=== PATIENT | female | born 1995 | race Caucasian/White ===

== ENCOUNTER 2021-12-16 11:03 | Emergency (ER) | payer BC, SELFPAY ==
[2021-12-16 11:22] VITALS: BP 138/91; PULSE 123; RESP 18; TEMP 37.5; O2SAT 100
--- NOTE | 2021-12-16 11:57 | ED.GENADULT ---
HPI - General Adult General Chief complaint: Upper Respiratory Infection Stated complaint: sore and swollen throat History of Present Illness HPI narrative: Patient is a 26-year-old female who presents to the express care via POV for an evaluation of a sore throat that began 3 days ago. Additionally, she reports fever, myalgias, and intermittent frontal headaches. Maximum temperature was 102.0. Ibuprofen and sleeping provides minimal relief. Swallowing worsens throat pain. 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 Her students have been out with strep throat and [id number]. Related Data Home Medications Medication Instructions Recorded Confirmed No Home Medications 12/16/21 12/16/21 Allergies Allergy/AdvReac Type Severity Reaction Status Date / Time No Known Allergies Allergy Verified 12/16/21 11:59 Review of Systems Review of Systems: Denies chills, sweats, change in appetite, poor p.o. intake, drooling, difficulty swallowing, severe persistent headaches, sinus problems, ear problems, cough, wheezing, abdominal pain, shortness of breath, nausea, vomiting, diarrhea, chest pain, and heart palpitations. Exam Narrative: GENERAL: Well-appearing, well-nourished, and in no acute distress. HEAD: Normocephalic, atraumatic. No sinus tenderness or facial swelling appreciated. EYES: PERRLA and EOMI. No evidence of erythema, swelling, or drainage. ENT: Bilateral external ears and ear canals normal. Bilateral TMs are normal.No TM perforation. Nares clear, no rhinorrhea or epistaxis. Bilateral turbinates without erythema/ swelling. Mucous membranes moist and pink. Uvula is midline without erythema and swelling. Bilateral tonsils are moderately edematous and erythematous. Breath odor and voice normal. NECK: Supple. Moderate bilateral submandibular lymphadenopathy palpated. No nuchal rigidity appreciated. CHEST: Bilateral lung gregg are clear to auscultation. No respiratory distress. No evidence of cough or pleuritic cp upon examination. HEART: Regular rate and rhythm. No murmur, gallop, or rub heard. EXTREMITIES: Normal range of motion. No edema. SKIN: Warm, dry, no rash. NEURO: No focal deficits. Alert and oriented x3. Course Course Level of Care: Express Care Visit Vital Signs Vital signs: Vital Signs Temperature 99.5 F 12/16/21 11:22 Pulse Rate 123 H 12/16/21 11:22 Respiratory Rate 18 12/16/21 11:22 Blood Pressure 138/91 H 12/16/21 11:22 Pulse Oximetry 100 12/16/21 11:22 Oxygen Delivery Room Air 12/16/21 11:22 Temperature 99.5 F 12/16/21 11:22 Pulse Rate 123 H 12/16/21 11:22 Respiratory Rate 18 12/16/21 11:22 Blood Pressure 138/91 H 12/16/21 11:22 Pulse Oximetry 100 12/16/21 11:22 Oxygen Delivery Room Air 12/16/21 11:22 Medical Decision Making Differential Diagnosis Differential Diagnosis: Allergic rhinitis, ABRS, acute viral sinusitis, strep pharyngitis, nasopharyngitis, bronchitis, pneumonia, AOM, otitis externa, viral URI, influenza, covid-19 Vital Signs Vital Signs: Vital Signs Temperature 99.5 F 12/16/21 11:22 Pulse Rate 123 H 12/16/21 11:22 Respiratory Rate 18 12/16/21 11:22 Blood Pressure 138/91 H 12/16/21 11:22 Pulse Oximetry 100 12/16/21 11:22 Oxygen Delivery Room Air 12/16/21 11:22 Temperature 99.5 F 12/16/21 11:22 Pulse Rate 123 H 12/16/21 11:22 Respiratory Rate 18 12/16/21 11:22 Blood Pressure 138/91 H 12/16/21 11:22 Pulse Oximetry 100 12/16/21 11:22 Oxygen Delivery Room Air 12/16/21 11:22 Due to an elevated blood pressure, I had a detailed discussion with the patient and/or guardian regarding the need for follow-up with their primary care provider within the next 3-4 days. Patient verbalized understanding and agreed. Lab Data Lab results narrative: Rapid COVID negative, rapid strep negative, influenza A/B- Labs: Lab Results 12/16/21 Range/Un
[2021-12-16 11:59] VITALS: PULSE 120
== END 2021-12-16 12:00 | disposition home or self-care (01) ==
PROVIDERS: Emergency Provider Nurse Practitioner Family
DX: J03.90 Acute tonsillitis, unspecified (principal); Z20.822 Contact with and (suspected) exposure to COVID-19
CPT/HCPCS: 87081; 87426; 87804; 87880; 99213; C9803; G0463

== ENCOUNTER 2022-03-08 11:14 | Emergency (ER) | payer BC, SELFPAY ==
[2022-03-08 11:39] VITALS: BP 127/79; PULSE 91; RESP 16; TEMP 36.8; O2SAT 100
--- NOTE | 2022-03-08 12:16 | ED.DENTAL ---
HPI - Dental/Oral General Chief complaint: Dental/Oral Stated complaint: toothache Time Seen by Provider: 03/08/22 12:17 Source: patient Mode of arrival: ambulatory History of Present Illness HPI Narrative: 26-year-old female presented for complaint of right lower wisdom tooth pain over the past few days. She endorses the tooth is impacted and is concerned for possible infection and spreading to her body. Endorses pain, swelling, and redness around the gums. She attempted to get into a dentist was unable to due to the holiday. She denies Tinnitus, dizziness, nausea, vomiting, fevers or chills. MD Complaint: tooth pain Related Data Allergies Allergy/AdvReac Type Severity Reaction Status Date / Time No Known Allergies Allergy Verified 12/16/21 11:59 Review of Systems Review of Systems: CONSTITUTIONAL: Denies body aches, fever, chills ENT: Denies rhinorrhea, congestion, sore throat, or otalgia. Reports dental pain CARDIOVASCULAR: Denies chest pain, palpitations RESPIRATORY: Denies cough or dyspnea. SKIN: Denies rash, itching, or wounds. MUSCULOSKELETAL: Denies myalgia. NEUROLOGIC: Denies headache, numbness, tingling, or weakness. PMFSH Comments At time of signature, I have reviewed and agree with nursing past medical, surgical, social and family history unless otherwise noted. Please see nursing chart for further information. There is no relevant family history pertinent to the presenting complaint Exam Narrative: GENERAL: Appears in pain; no acute distress. HEAD: Normocephalic, atraumatic. EYES: EOMI. No redness or drainage. Conjunctivae normal. ENT: Dental pain location of #32; tooth is impacted with mild erythema and swelling to gums, no apparent abscess or drainage, mild tenderness with palpation. Mucous membranes pink and moist. TMs normal bilaterally. Throat normal. Uvula midline. NECK: Normal AROM. No lymphadenopathy. CHEST: No respiratory distress. Clear to auscultation. HEART: Regular rate and rhythm. SKIN: Warm, dry, no rash. Normal skin turgor. NEURO: Alert and oriented x3. Course Course Emergency Course: Patient is aware of diagnosis, understands and agrees to treatment plan. Anticipatory guidance given. Patient agrees to follow-up as directed and is aware of reasons to seek care at the emergency department. Portions of this record may have been created with voice recognition software Level of Care: Express Care Visit Vital Signs Vital signs: Vital Signs Temperature 98.2 F 03/08/22 11:39 Pulse Rate 91 03/08/22 11:39 Respiratory Rate 16 03/08/22 11:39 Blood Pressure 127/79 03/08/22 11:39 Pulse Oximetry 100 03/08/22 11:39 Oxygen Delivery Room Air 03/08/22 11:39 Temperature 98.2 F 03/08/22 11:39 Pulse Rate 91 03/08/22 11:39 Respiratory Rate 16 03/08/22 11:39 Blood Pressure 127/79 03/08/22 11:39 Pulse Oximetry 100 03/08/22 11:39 Oxygen Delivery Room Air 03/08/22 11:39 MDM - Dental/Oral MDM Narrative Medical decision making narrative: Pt presented for dentalgia. There are no focal signs of space occupying lesions that are compromising to the airway. No uvular deviation or soft palate edema. The floor of the mouth is soft with no signs of Rodolfo's Angina. Patient is without trismus or drooling and able to swallow secretions. Patient is felt appropriate for discharge home with dental follow up. Differential Diagnosis Differential diagnosis: Likely gingival abscess, dental caries, toothache, dental abscess and fracture of tooth Discharge Plan Discharge Clinical Impression: Toothache Patient Disposition: Home, Self-Care Condition: Stable Instructions: Antibiotic Form, Toothache (ED) Additional Instructions: Take antibiotic as directed May apply heat or ice to the face Gentle brushing and flossing. Rinse mouth with warm salt water at least 2 times a day. Alternate Tylenol and ibuprofen as needed for pain Follow-up w
== END 2022-03-08 12:31 | disposition home or self-care (01) ==
PROVIDERS: Emergency Provider Nurse Practitioner Family; PCP Internal Medicine
DX: K08.89 Other specified disorders of teeth and supporting structures (principal)
CPT/HCPCS: 99213; G0463

== ENCOUNTER 2022-06-15 13:12 | Emergency (ER) | payer BC, SELFPAY ==
[2022-06-15 13:37] VITALS: BP 131/77; PULSE 89; RESP 16; TEMP 36.4; O2SAT 100
--- NOTE | 2022-06-15 14:04 | ED.GENADULT ---
HPI - General Adult General Chief complaint: Upper Respiratory Infection Stated complaint: cough,hoarse Time Seen by Provider: 06/15/22 14:04 Source: patient Mode of arrival: ambulatory Limitations: no limitations History of Present Illness HPI narrative: 26-year-old female patient presents to the [facility] with complaints of a cough and loss of voice. Patient states that she started having a cough about 2 weeks ago and has been getting increasingly better but yesterday she lost her voice and now it hurts to talk. Denies any fevers, body aches or chills. Related Data Allergies Allergy/AdvReac Type Severity Reaction Status Date / Time No Known Allergies Allergy Verified 06/15/22 13:45 Review of Systems Review of Systems: CONSTITUTIONAL: Denies fever, chills, or sweats. EYES: Denies visual changes, redness, or discharge. ENT: Denies rhinorrhea, congestion, sore throat, or otalgia. positive loss of voice CARDIOVASCULAR: Denies chest pain, palpitations, or edema. RESPIRATORY: Positive cough , denies dyspnea. GASTROINTESTINAL: Denies abdominal pain, nausea, vomiting, or diarrhea. GENITOURINARY: Denies dysuria or hematuria. SKIN: Denies rash or itching. MUSCULOSKELETAL: Denies back pain, joint pain, or myalgia. NEUROLOGIC: Denies headache, numbness, or weakness. PSYCHIATRIC: Denies anxiety or depression. [facility] Past Medical History Medical History (Updated 06/15/22 @ 14:13 by ZIGGY Fajardo) Ganglion cyst of dorsum of left wrist Comments At the time of my signature I agree with nursing past medical history, surgical, social, and family history. There is no relevant family history pertinent to the presenting complaint. Exam Narrative: GENERAL: Well-appearing, well-nourished, and in no acute distress. HEAD: Normocephalic, atraumatic. EYES: PERRLA and EOMI. ENT: Nares clear, no rhinorrhea or epistaxis. Mucous membranes moist. posterior pharynx with some postnasal drainage 2 and slight erythema. No tonsillar enlargement, no exudates or lesions present. Patient is talking in a whisper and appears that she has lost her voice. NECK: Supple. No lymphadenopathy CHEST: Clear to auscultation. No respiratory distress. no tripoding no HEART: Regular rate and rhythm. No murmur heard. Normal peripheral pulses. ABDOMEN: Soft, nontender, nondistended, normal active bowel sounds. EXTREMITIES: Normal range of motion. No edema. SKIN: Warm, dry, no rash. NEURO: No focal deficits. Alert and oriented x3. Course Course Level of Care: Express Care Visit Vital Signs Vital signs: Vital Signs Temperature 36.4 C 06/15/22 13:37 Pulse Rate 89 06/15/22 13:37 Respiratory Rate 16 06/15/22 13:37 Blood Pressure 131/77 06/15/22 13:37 Pulse Oximetry 100 06/15/22 13:37 Oxygen Delivery Room Air 06/15/22 13:37 Temperature 36.4 C 06/15/22 13:37 Pulse Rate 89 06/15/22 13:37 Respiratory Rate 16 06/15/22 13:37 Blood Pressure 131/77 06/15/22 13:37 Pulse Oximetry 100 06/15/22 13:37 Oxygen Delivery Room Air 06/15/22 13:37 Vital signs reviewed. The patient has been informed that they may have pre-hypertension or Hypertension based on a BP reading in the department. I recommend that the patient call the primary care provider listed on their discharge instructions or a physician of their choice this week to arrange follow up for further evaluation of possible pre-hypertension or Hypertension Medical Decision Making MDM Narrative Medical decision making narrative: discussed with patient it appears that she most likely has laryngitis. Plan of care patient is discharged home with the 5 day course of steroid to help with the cough as well as the laryngitis symptoms. Patient verbalized understanding denies any other questions or concern Differential Diagnosis Differential Diagnosis: Differential diagnosis: Allergic rhinitis, chronic sinusitis, tonsillitis, acute sinusitis, infectious mononucleos
== END 2022-06-15 14:19 | disposition home or self-care (01) ==
PROVIDERS: Emergency Provider Nurse Practitioner Family; PCP Internal Medicine
DX: J04.0 Acute laryngitis (principal)
CPT/HCPCS: 99213; G0463

== ENCOUNTER 2022-12-26 12:40 | Emergency (ER) | payer BC, SELFPAY ==
--- NOTE | 2022-12-26 12:43 | ED.URI ---
HPI - URI/Sore Throat General Chief Complaint: Upper Respiratory Infection Stated Complaint: Sore Throat,Fatigue Time Seen by Provider: 12/26/22 12:42 Source: patient Mode of arrival: ambulatory Limitations: no limitations History of Present Illness HPI Narrative: Charlotte is a 27-year-old female patient presenting to the clinic today with complaints of fever, sore throat, fatigue, and body aches that started last night. 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 MD elicited complaint: sore throat and other (Fatigue, body aches) Related Data Home Medications Medication Instructions Recorded Confirmed No Home Medications 12/26/22 12/26/22 Allergies Allergy/AdvReac Type Severity Reaction Status Date / Time No Known Allergies Allergy Verified 12/26/22 12:51 Review of Systems Review of Systems: Pertinent positives per HPI. Patient denies any rash, headache, visual changes, dizziness, cough, shortness of breath, chest pain, palpitations, nausea, vomiting, diarrhea, constipation, abdominal pain, or any urinary issues. [facility] Past Medical History Medical History (Updated 12/26/22 @ 13:16 by John Lewis APRN) Ganglion cyst of dorsum of left wrist Comments At the time of my signature, I reviewed and agree with the nursing past medical, surgical, social, and family history. There is no relevant family history pertinent to the patient complaint. Exam Narrative: General: Well-developed, well nourished, in no apparent distress Head: Normocephalic, atraumatic Eyes: Pupils equally round and reactive to light bilaterally, EOM intact, sclera and conjunctive clear, no discharge, lids normal Ears: TMs intact and clear, ear canals clear, no drainage, grossly hearing normal. Nose: Nares patent, clear nasal discharge, no inflammation, no sinus tenderness. Mouth: Oral pharynx red without lesions or masses, good dentition, MMM. Neck: Supple, trachea midline, no enlargement of anterior or posterior cervical nodes, no thyroid masses or goiter palpable. Cardio: Regular rate and rhythm, s1 and s2 normal, no murmur appreciated. Resp: Clear to auscultation bilaterally, no rhonchi, rales, wheezing or rubs Course Course Emergency Course: Portions of this record may have been created with voice recognition software. Level of Care: Express Care Visit Vital Signs Vital signs: Vital signs reviewed MDM - URI/Sore Throat MDM Narrative Medical decision making narrative: At the time of visit patient is resting comfortably on exam table. COVID, influenza, and strep test were performed were all negative. Recommend retesting for COVID in 2 days. Supportive measures were discussed with the patient she voiced understanding discharge instructions agrees to treatment plan. Differential Diagnosis Differential diagnosis: Likely upper respiratory infection, otitis media, sinusitis, viral infection, bronchitis, influenza, pharyngitis and other (COVID) Discharge Plan Discharge Clinical Impression: URI (upper respiratory infection), Pharyngitis, Acute viral syndrome Prescriptions: No Action No Home Medications Follow-up/Referrals: UNKNOWN,DOCTOR [Non-Staff] - Quality NIHSS Nursing Documentation ED NIHSS nursing documentation: reviewed/agree
[2022-12-26 12:47] VITALS: BP 108/76; PULSE 125; RESP 18; TEMP 38.2; O2SAT 100
== END 2022-12-26 13:20 | disposition home or self-care (01) ==
PROVIDERS: Emergency Provider Nurse Practitioner Family
DX: J06.9 Acute upper respiratory infection, unspecified (principal); J02.9 Acute pharyngitis, unspecified; B34.9 Viral infection, unspecified; Z20.822 Contact with and (suspected) exposure to COVID-19
CPT/HCPCS: 87081; 87426; 87804; 87880; 99213; C9803; G0463